=== PATIENT | female | born 1990 | race American Indian/Alaskan Native ===

== ENCOUNTER 2017-09-25 16:46 | Emergency (ER) | payer MEDICAID ==
[2017-09-25 17:01] VITALS: BP 122/68
[2017-09-25] MEDS ORDERED: ATARAX PO ONE (17:59)
[2017-09-25] MEDS ORDERED: TORADOL IV ONE (17:59)
--- NOTE | 2017-09-25 17:59 | Emergency Department Report ---
ED General Adult HPI - General Chief complaint: Allergic Reaction Stated complaint: ALLERGIC REACTION Time Seen by Provider: 09/25/17 17:53 Source: patient, EMS (ems notes not available at time of chart dictation), RN notes reviewed Mode of arrival: Stretcher Limitations: No Limitations - History of Present Illness Initial comments: This is a 27-year-old female. The patient is previously unknown to this provider. She reports that she is not . The patient presents to the ER with burning rash and facial pain. It started 3 days ago. It is burning and somewhat painful. It is constant. It does not radiate anywhere. It has no exacerbating or relieving factors. Patient reports getting her lips pierced 2 weeks ago, and having left anterior chest wall tattoo also placed 2 weeks ago. No other complaints. No airway issues. Speaking in full sentences. -: Gradual, days(s) Location: face, mouth, neck Radiation: non-radiation Quality: burning Consistency: constant Improves with: none Worsens with: none Associated Symptoms: rash. denies: confusion, chest pain, cough, diaphoresis, fever/chills, loss of appetite, malaise, nausea/vomiting, shortness of breath, syncope, weakness - Related Data Previous Rx's Medication Instructions Recorded Last Taken Type Acetaminophen/Codeine 1 tab PO Q6H PRN #14 tab 09/04/14 Unknown Rx [Acetaminophen-Codeine #3 TAB] Ibuprofen [Motrin 800 MG tab] 800 mg PO Q8H #30 tablet 09/13/14 Unknown Rx Misoprostol [Cytotec] 2 tab PO Q4H #6 tablet 09/13/14 Unknown Rx Desonide [Desonide 0.05%] 1 applicatio TP BID #1 tube 09/25/17 Unknown Rx EPINEPHrine [Epipen 2-Clinton] 0.3 mg IM DAILY PRN #2 ml 09/25/17 Unknown Rx Famotidine [Pepcid] 20 mg PO BID #10 tablet 09/25/17 Unknown Rx Pramoxine HCl/Calamine [Calamine 177 ml TP QID PRN #1 lotion 09/25/17 Unknown Rx Medicated Lotion] diphenhydrAMINE [Benadryl] 50 mg PO Q8HR PRN #20 capsule 09/25/17 Unknown Rx Allergies Allergy/AdvReac Type Severity Reaction Status Date / Time No Known Allergies Allergy Unverified 09/04/14 10:08 ED Review of Systems ROS: Stated complaint: ALLERGIC REACTION Other details as noted in HPI ED Past Medical Hx - Past Medical History Hx Asthma: Yes - Social History Smoking Status: Current Every Day Smoker Substance Use Type: Alcohol - Medications Home Medications: Home Medications Medication Instructions Recorded Confirmed Last Taken Type Acetaminophen/Codeine 1 tab PO Q6H PRN #14 tab 09/04/14 Unknown Rx [Acetaminophen-Codeine #3 TAB] Ibuprofen [Motrin 800 MG tab] 800 mg PO Q8H #30 tablet 09/13/14 Unknown Rx Misoprostol [Cytotec] 2 tab PO Q4H #6 tablet 09/13/14 Unknown Rx Desonide [Desonide 0.05%] 1 applicatio TP BID #1 tube 09/25/17 Unknown Rx EPINEPHrine [Epipen 2-Clinton] 0.3 mg IM DAILY PRN #2 ml 09/25/17 Unknown Rx Famotidine [Pepcid] 20 mg PO BID #10 tablet 09/25/17 Unknown Rx Pramoxine HCl/Calamine [Calamine 177 ml TP QID PRN #1 lotion 09/25/17 Unknown Rx Medicated Lotion] diphenhydrAMINE [Benadryl] 50 mg PO Q8HR PRN #20 capsule 09/25/17 Unknown Rx ED Physical Exam - General Limitations: No Limitations General appearance: obese - Head Head exam: Present: atraumatic, normocephalic - Eye Eye exam: Present: normal appearance, PERRL, EOMI, other (visual acuity intact to finger counting, color perception, reading at a close distance). Absent: nystagmus - ENT ENT exam: Present: normal exam, normal orophraynx, mucous membranes moist, normal external ear exam - Neck Neck exam: Present: normal inspection, full ROM - Respiratory Respiratory exam: Present: normal lung sounds bilaterally. Absent: respiratory distress, chest wall tenderness, accessory muscle use, decreased breath sounds, prolonged expiratory - Cardiovascular Cardiovascular Exam: Present: regular rate, normal rhythm, normal heart sounds. Absent: bradycardia, tachycardia, irregular rhythm, systolic murmur, diastolic murmur, rubs, gallop - GI/Abdominal GI/Abdominal exam: Present: soft, normal bowel sounds. Absent: distended, tenderness, guarding, rebound, rigid, pulsatile mass - Extremities Exam Extremities exam: Present: normal inspection, full ROM, normal capillary refill. Absent: pedal edema, joint swelling - Back Exam Back exam: Present: normal inspection, full ROM. Absent: tenderness, CVA tenderness (R), muscle spasm, paraspinal tenderness, vertebral tenderness - Neurological Exam Neurological exam: Present: alert, oriented X3, normal gait, other (Extraocular movements intact. Tongue midline. No facial droop. Facial sensation intact to light touch in the V1, V2, V3 distribution bilaterally. 5 and 5 strength in 4 extremities.. Sensation is intact to light touch in 4 extremities.). Absent : motor sensory deficit - Psychiatric Psychiatric exam: Present: anxious - Skin Skin exam: Present: warm, rash, other (patient has superficial crusting around the mouth, minimal erythema noted around the mouth and lips, there is no stridor , dysphonia, patient is speaking in full sentences.) ED Course Vital Signs 09/25/17 09/25/17 16:58 17:40 Temperature 98.8 F Pulse Rate 96 H Respiratory 20 20 Rate Blood Pressure 122/68 O2 Sat by Pulse 97 98 Oximetry ED Medical Decision Making - Lab Data Vital Signs 09/25/17 09/25/17 16:58 17:40 Temperature 98.8 F Pulse Rate 96 H Respiratory 20 20 Rate Blood Pressure 122/68 O2 Sat by Pulse 97 98 Oximetry - Medical Decision Making Differential diagnosis, including but not limited to: Allergic reaction, cellulitis, dermatitis Assessment and plan: 27-year-old female who got her lips pierced 2 weeks ago, has no airway symptoms, speaking in full sentences, currently playing on a cellular phone without stridor or dysphonia. She has some crusting superficially, and her skin is described as burning and itching. This is most likely a dermatitis. Patient was instructed to follow-up with her tatoo artist to have the lip piercings removed in case this is a delayed reaction to her foreign body. Patient will be started empirically on Atarax, calamine lotion, as well as topical desonide. Clinically doubt infection at this time, don't think the patient needs antibiotics at this time given the aforementioned history. Return precautions are reviewed. Critical care attestation.: If time is entered above; I have spent that time in minutes in the direct care of this critically ill patient, excluding procedure time. ED Disposition Clinical Impression: Rash Disposition: DC-01 TO HOME OR SELFCARE Is pt being admited?: No Does the pt Need Aspirin: No Condition: Stable Instructions: Contact Dermatitis (ED) Additional Instructions: Take medications as directed. Use calamine lotion as needed for burning and itching. Use the epinephrine pen only if he develop inability to speak, inability to breathe. If these symptoms happen, used epinephrine pen, and then contact 911 as soon as possible. Follow up with a construction teacher or primary care doctor within the next [address] Edgar Ayon is a local primary care doctor. Dr. Ramos is a local marketing programs specialist. Follow up with the tattoo parlor or individual who placed the lip piercings, and I recommend having the lip piercings discontinued. Return to the ER right away with fevers, chills, chest pain, shortness of breath, intractable nausea or vomiting, confusion, inability to speak, inability to breathe. Referrals: PRIMARY CAREMD [Primary Care Provider] - 3-5 Days RALEIGH RAMOS MD [Staff Physician] - 3-5 Days EDGAR AYON MD [Staff Physician] - 3-5 Days
== END 2017-09-25 18:52 | disposition home or self-care (01) ==
LOC: ED 16:46
DX: R21 Rash and other nonspecific skin eruption (principal); J45.909 Unspecified asthma, uncomplicated; F17.200 Nicotine dependence, unspecified, uncomplicated
CPT/HCPCS: 96374; 99282; J1885